=== PATIENT | female | born 1955 | race Caucasian/White ===

== ENCOUNTER 2022-07-23 14:03 | Emergency (ER) | payer OTHER, SELFPAY ==
--- NOTE | ~2022-07-23 | XR_ITS ---
EXAMINATION: XR hand RT min 3V DATE: 07/23/2022 14:28 INDICATION: Right hand injury. TECHNIQUE: 3 views of right hand were obtained. COMPARISON: None. FINDINGS: Bone alignment is normal. There is an oblique fracture of diaphysis of third metacarpal. Th e distal fracture fragment demonstrates 3 mm dorsal displacement. There is severe osteoarthritis of t riscaphe joint, moderate osteoarthritis of first carpometacarpal joint, and mild to moderate osteoart hritis of many of the metacarpophalangeal joints and interphalangeal joints. IMPRESSION: 1. Oblique fracture of diaphysis of third metacarpal. 2. Polyarticular osteoarthritis. Reviewed, dictated and finalized at location A.
[2022-07-23 14:10] VITALS: BP 148/91; PULSE 94; RESP 20; TEMP 36.7; O2SAT 92
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
== END 2022-07-23 15:20 | disposition home or self-care (01) ==
PROVIDERS: Emergency Provider Nurse Practitioner; PCP Nurse Practitioner Family
DX: S62.302A Unspecified fracture of third metacarpal bone, right hand, initial encounter for closed fracture (principal); W05.1XXA Fall from non-moving nonmotorized scooter, initial encounter; E78.5 Hyperlipidemia, unspecified; I10 Essential (primary) hypertension; E03.9 Hypothyroidism, unspecified
CPT/HCPCS: 29125; 73130; 99214; A4565; G0463